=== PATIENT | female | born 1950 | race Caucasian/White ===

== ENCOUNTER 2017-08-29 14:30 | Outpatient (RCR) | payer OTHER | END 2017-09-17 | disposition home or self-care (01) | LOC: PTY 14:30 → MERGE 14:30 | PROVIDERS: ATTEND Internal Medicine | DX: M54.2 Cervicalgia (principal); G89.29 Other chronic pain; M62.838 Other muscle spasm; M25.511 Pain in right shoulder; M25.512 Pain in left shoulder; M25.539 Pain in unspecified wrist; I10 Essential (primary) hypertension; Z98.1 Arthrodesis status ==